=== PATIENT | female | born 1950 | race Caucasian/White ===

== ENCOUNTER → 2016-12-24 | Outpatient (CLI) | payer MEDICARE, OTHER ==
[~2016-12-24] MED LIST: ACET-732 PO; BETA1TAB PO; BOSWELIA PO; CALCIUM CITRATE; COQ PO; EVENING PRIMROSE PO; FISH1CAP29 PO; GINGER PO; GLUCOSAMINE SULFATE PO; HEALTH PO; IBUP200C42 PO; LACT1CAP32 PO; LEVO100T83 PO; MAG PO; MALIC ACID PO; METR45CR TP; MILK THISTLE PO; MULT-806 PO; VITAMIN D3 PO; [UNRECOGNIZED DRUG - OTHER] PO; [UNRECOGNIZED DRUG - OTHER] PO
== END ==
LOC: IMA 13:18
PROVIDERS: ATTEND Nurse Practitioner
DX: Z78.0 Asymptomatic menopausal state (principal)